=== PATIENT | female | born 1975 | race Caucasian/White ===

== ENCOUNTER 2018-09-04 16:31 | Emergency (ER) | payer OTHER ==
[~2018-09-04] VITALS: Ht 167.6 cm; Wt 68.0 kg
[2018-09-04 16:55] VITALS: BP 133/82
--- NOTE | 2018-09-04 17:12 | NUR ---
43F C/O B/L EARS FEELING CLOGGED AND HEARING ECHO SOUNDS. VOMITING X1. DENIES FEVER, CHILLS, DIZZINESS. WEAKNESS ON AND OFF. STATES VOMITING BROUGHT ON WITH WEAKNESS FEELING. CERUMEN IN B/L EARS. GREEN OBJECT NOTED IN RIGHT EAR. PT STATES SHE PUT HERBS IN BOTH EARS BUT TOOK THEM OUT- HERBS WOULD HELP WITH "REMOVE THE AIR FROM EARS". HX: NONE
--- NOTE | 2018-09-04 17:19 | NUR ---
DR. STRICKLAND AT BEDSIDE.
[2018-09-04 18:32] VITALS: BP 128/79
--- NOTE | 2018-09-04 18:32 | NUR ---
Patient discharged with v/s stable. Written and verbal after care instructions given and explained. Patient verbalized understanding. Ambulatory with steady gait. All questions addressed prior to discharge. Advised to follow up with PMD.
== END 2018-09-04 18:32 | disposition home or self-care (01) ==
LOC: MED 16:31
DX: R42 Dizziness and giddiness (principal); R53.1 Weakness; H92.03 Otalgia, bilateral; R11.10 Vomiting, unspecified
CPT/HCPCS: 81002; 81025; 82948; 93005; 99283

== ENCOUNTER 2021-04-28 16:24 | Emergency (ER) | payer OTHER ==
[~2021-04-28] VITALS: Ht 175.3 cm; Wt 67.2 kg
[2021-04-28 16:52] VITALS: BP 129/66
--- NOTE | 2021-04-28 16:52 | NUR ---
pt to [facility]
[2021-04-28 17:37] LABS: BASOPHILS % (AUTO) 0.2 % (0.0-2.0); EOSINOPHILS # (AUTO) 0.1 K/uL (0-0.4); EOSINOPHILS % (AUTO) 1.9 % (0.0-4.0); HEMATOCRIT 35.1 % (36-48); LYMPHOCYTES # (AUTO) 0.5 K/uL (2.5-16.5); LYMPHOCYTES % (AUTO) 6.2 % (20.5-51.1); MEAN CORPUSCULAR HEMOGLOBIN 31 pg (27-31); MEAN CORPUSCULAR HGB CONC 34 g/dL (33-37); MEAN CORPUSCULAR VOLUME 91.3 fL (80-94); MONOCYTES # (AUTO) 0.5 K/uL (0.8-1.0); MONOCYTES % (AUTO) 5.8 % (1.7-9.3); NEUTROPHILS # (AUTO) 6.7 K/uL (1.8-7.7); NEUTROPHILS % (AUTO) 85.9 % (42.2-75.2); PLATELET COUNT (AUTO) 220 K/uL (140-450); RED BLOOD CELL COUNT(AUTO) 3.85 MIL/uL (4.20-5.40); RED CELL DISTRIBUTION WIDTH 12.6 % (11.6-13.7); WHITE BLOOD COUNT (AUTO) 7.8 K/uL (4.8-10.8)
--- NOTE | 2021-04-28 17:43 | NUR ---
PT AMB TO ER BED 2
[2021-04-28 17:52] LABS: ALBUMIN 3.8 g/dL (3.4-5.0); ANION GAP 9.9 (8-16); CREATININE 0.6 mg/dL (0.6-1.3); POTASSIUM 3.9 mmol/L (3.5-5.1); TOTAL BILIRUBIN 0.7 mg/dL (0.0-1.0)
[2021-04-28 17:53] LABS: BILIRUBIN,URINE NEGATIVE (NEGATIVE); BLOOD, URINE 3+ (NEGATIVE); COLOR,URINE YELLOW (YELLOW); LEUKOCYTE ESTERASE ,URINE NEGATIVE (NEGATIVE); NITRITE, URINE NEGATIVE (NEGATIVE); UGLUCOSE NEGATIVE (NEGATIVE)
[2021-04-28 17:54] LABS: APPEARANCE,URINE HAZY (CLEAR)
--- NOTE | 2021-04-28 18:00 | NUR ---
45 Y/O F AMBULATED TO BED 2 FROM TRIAGE WITH STEADY GAIT, C/O EPIGASTRIC THAT RADIATES ACROOS TOP OF ABDOMIN, WITH N/V X 2 THIS AM. PAIN 07/24 NKDA HX-NONE MEDS-NONE
[2021-04-28 18:11] LABS: RBC,URINE TOO NUMEROUS TO COUN /HPF (0-5); WBC,URINE NONE SEEN /HPF (0-5)
[2021-04-28] MEDS ORDERED: ALUM355S59 PO (19:05)
[2021-04-28] MEDS ORDERED: FAMO-90 PO (19:05)
[2021-04-28] MEDS: FAMOTIDINE 20 MG TAB PO ONE (19:13)
[2021-04-28] MEDS: ALUMINUM HYD/MAG/SIMETHICONE 30 ML UDC PO ONE (19:13)
[2021-04-28] MEDS: ACETAMINOPHEN EXTRA STRENGTH 500 MG TAB PO ONE (19:15)
--- NOTE | 2021-04-28 19:23 | NUR ---
report receieved from maryana saba. transfer of care at this time.
--- NOTE | 2021-04-28 19:23 | NUR ---
Pt report given to SANDRO RANDALL. Transfer of care at this time.
[2021-04-28 19:41] VITALS: BP 129/65
--- NOTE | 2021-04-28 19:42 | NUR ---
Patient discharged with v/s stable. Written and verbal after care instructions given and explained about abd pain, and gastritis. Patient alert, oriented and verbalized understanding of instructions. Ambulatory with steady gait. All questions addressed prior to discharge. ID band removed. Patient advised to follow up with PMD. Rx of maalox and pepcid given. Patient educated on indication of medication including possible reaction and side effects. Opportunity to ask questions provided and answered.
== END 2021-04-28 19:42 | disposition home or self-care (01) ==
LOC: MED 16:24
DX: K29.70 Gastritis, unspecified, without bleeding (principal)
CPT/HCPCS: 36415; 80053; 81001; 81025; 85025; 93005; 99284

== ENCOUNTER 2022-03-29 15:39 | Emergency (ER) | payer OTHER ==
[~2022-03-29] VITALS: Ht 170.2 cm; Wt 65.8 kg
[~2022-03-29 15:39] MED LIST: ALUM355S59 PO; FAMO-90 PO
[2022-03-29 15:51] VITALS: BP 114/77
--- NOTE | 2022-03-29 16:00 | NUR ---
46/F WALKED IN C/O LOW BACK PAIN RADIATING TO RIGHT HIP S/P FALL 1 MONTH AGO AT HOME. PMH: DENIES
[2022-03-29] MEDS ORDERED: IBUPROFEN 600 MG TAB PO ONE (16:10)
[2022-03-29] MEDS ORDERED: IBUP-2213 PO (16:49)
[2022-03-29] MEDS ORDERED: GABA300C PO (16:49)
[2022-03-29] MEDS ORDERED: LID5T TP (16:49)
[2022-03-29] MEDS ORDERED: CYCL-711 PO (16:49)
--- NOTE | 2022-03-29 17:05 | NUR ---
URINE COLLECTED AND SENT TO LAB
[2022-03-29 17:14] LABS: APPEARANCE,URINE CLEAR (CLEAR); BILIRUBIN,URINE NEGATIVE (NEGATIVE); BLOOD, URINE NEGATIVE (NEGATIVE); COLOR,URINE YELLOW (YELLOW); LEUKOCYTE ESTERASE ,URINE NEGATIVE (NEGATIVE); NITRITE, URINE NEGATIVE (NEGATIVE); UGLUCOSE NEGATIVE (NEGATIVE)
[2022-03-29 18:45] VITALS: BP 122/68
== END 2022-03-29 18:45 | disposition home or self-care (01) ==
LOC: MED 15:39
DX: S30.0XXA Contusion of lower back and pelvis, initial encounter (principal); X58.XXXA Exposure to other specified factors, initial encounter; Y93.89 Activity, other specified; Y92.89 Other specified places as the place of occurrence of the external cause; Y99.8 Other external cause status
CPT/HCPCS: 72100; 81003; 81025; 99284; Q0092

== ENCOUNTER 2022-10-19 18:08 | Emergency (ER) | payer OTHER ==
[~2022-10-19] VITALS: Ht 167.6 cm; Wt 68.0 kg
[~2022-10-19 18:08] MED LIST changes: +CYCL-711 PO; +IBUP-2213 PO; +LID5T TP
[2022-10-19 18:23] VITALS: BP 131/86; PULSE 77; RESP 20; TEMP 98.9; O2SAT 97
[2022-10-19] MEDS ORDERED: ALUMINUM HYD/MAG/SIMETHICONE 30 ML UDC PO ONE (20:40)
[2022-10-19] MEDS ORDERED: PANTOPRAZOLE 40 MG TABEC PO ONE ×2 (20:40→22:42)
[2022-10-19] MEDS ORDERED: SUCRALFATE 1 GM TAB PO SCH (20:40)
[2022-10-19 20:57] LABS: BASOPHILS % (AUTO) 0.4 % (0.0-2.0); EOSINOPHILS % (AUTO) 0.7 % (0.0-4.0); HEMATOCRIT 37.1 % (36-48); HEMOGLOBIN 12.5 g/dL (12.0-16.0); LYMPHOCYTES # (AUTO) 1.1 K/uL (2.5-16.5); LYMPHOCYTES % (AUTO) 19.2 % (20.5-51.1); MEAN CORPUSCULAR HEMOGLOBIN 30 pg (27-31); MEAN CORPUSCULAR HGB CONC 34 g/dL (33-37); MEAN CORPUSCULAR VOLUME 89.7 fL (80-94); MONOCYTES # (AUTO) 0.5 K/uL (0.8-1.0); MONOCYTES % (AUTO) 8.8 % (1.7-9.3); NEUTROPHILS # (AUTO) 4.1 K/uL (1.8-7.7); NEUTROPHILS % (AUTO) 70.9 % (42.2-75.2); PLATELET COUNT (AUTO) 216 K/uL (140-450); RED BLOOD CELL COUNT(AUTO) 4.14 MIL/uL (4.20-5.40); RED CELL DISTRIBUTION WIDTH 12.5 % (11.6-13.7); WHITE BLOOD COUNT (AUTO) 5.7 K/uL (4.8-10.8)
[2022-10-19 21:19] LABS: ALANINE AMINOTRANSFERASE 102 U/L (12-78); ALBUMIN 3.8 g/dL (3.4-5.0); ALKALINE PHOSPHATASE 133 U/L (50-136); ASPARTATE AMINOTRANSFERASE 134 U/L (15-37); CALCIUM 8.8 mg/dL (8.5-10.1); CREATININE 0.7 mg/dL (0.6-1.3); GFR ARICAN-AMERICAN 116 mL/min (>90); GFR NON ARICAN-AMERICAN 96 mL/min (>90); GLUCOSE 104 mg/dL (74-106); LIPASE 31 U/L (73-393); TOTAL BILIRUBIN 0.4 mg/dL (0.0-1.0); TOTAL PROTEIN, SERUM 7.6 g/dL (6.4-8.2); UREA NITROGEN, BLOOD 11 mg/dL (7-18)
[2022-10-19 21:22] LABS: ANION GAP 10.5 (8-16); CARBON DIOXIDE 28.3 mmol/L (21-32); CHLORIDE 104 mmol/L (98-107); POTASSIUM 3.8 mmol/L (3.5-5.1); SODIUM SERUM 139 mmol/L (136-145)
[2022-10-19] MEDS ORDERED: OMEP40EC23 PO (22:04)
[2022-10-19] MEDS ORDERED: ALUM355S5 PO (22:04)
[2022-10-19] MEDS ORDERED: ONDA-188 PO (22:04)
[2022-10-19] MEDS ORDERED: SUCR1TAB35 PO (22:04)
[2022-10-19] MEDS ORDERED: ALUMINUM HYD/MAG/SIMETHICONE 30 ML UDC ONE (22:42)
[2022-10-19 23:30] VITALS: BP 147/78; PULSE 81; RESP 18; TEMP 98.9; O2SAT 95
== END 2022-10-19 23:30 | disposition home or self-care (01) ==
LOC: MED 18:08
DX: K29.70 Gastritis, unspecified, without bleeding (principal); Z79.899 Other long term (current) drug therapy
CPT/HCPCS: 36415; 71045; 80053; 83690; 84484; 85025; 99284